=== PATIENT | male | born 1990 | race Caucasian/White ===

== ENCOUNTER 2022-03-01 17:05 | Emergency (ER) | payer OTHER ==
[2022-03-01 20:59] LABS: BASOPHIL 0.5 % (0-2); EOSINOPHIL 2.5 % (0-5); HCT 45.2 % (42.0-52.0); HGB 14.9 g/dl (13.2-18.0); LYMPHOCYTE 35.7 % (15-48); MCH 29.7 pg (25.0-31.0); MCV 90.2 fL (78.0-100.0); MONOCYTE 6.3 % (0-12); MPV 11.7 fL (6.0-9.5); NEUTROPHIL 54.9 % (41-80); NRBC 0; PLT 231 K/uL (150-400); RBC 5.01 M/uL (4.70-6.00); RDW 12.2 % (11.5-14.0); WBC 7.5 K/uL (4.0-10.5)
[2022-03-01 21:12] LABS: BUN/CREAT RATIO (CALC) 12.5 RATIO; CREATININE 1.12 mg/dL (0.67-1.17); POTASSIUM 3.8 mmol/L (3.5-5.1)
[2022-03-01] MEDS ORDERED: MEDROL 4MG DOSEP4 MG PO (22:42)
[2022-03-01 23:39] LABS: CORONAVIRUS 2019 SARS-COV-2 NEGATIVE (NEGATIVE); INFLUENZA A NAA NEGATIVE (NEGATIVE)
== END 2022-03-01 22:48 | disposition home or self-care (01) ==
LOC: FER 17:05
PROVIDERS: Nurse Practitioner Family
DX: R07.89 Other chest pain (principal); S46.912A Strain of unspecified muscle, fascia and tendon at shoulder and upper arm level, left arm, initial encounter; Z20.822 Contact with and (suspected) exposure to COVID-19
CPT/HCPCS: 36415; 71045; 80048; 84484; 85025; 85379; 93005; U0002